=== PATIENT | female | born 1990 | race Caucasian/White ===

== ENCOUNTER 2017-02-23 22:43 | Inpatient (IN) | payer BC ==
[~2017-02-23] VITALS: Ht 167.6 cm; Wt 68.1 kg
[2017-02-23 23:02] LABS: BILIRUBIN,URINE NEGATIVE (NEG); GLUCOSE,URINE NEGATIVE (NEG); NITRITE,URINE NEGATIVE (NEG); PROTEIN,URINE NEGATIVE (NEG-TRACE)
[2017-02-23 23:08] LABS: BACTERIA,URINE 0 /HPF (0-FEW); RBC,URINE 0 /HPF (0-2); SQUAMOUS EPITHELIAL CELL,UR MOD /LPF
[2017-02-23 23:09] LABS: BARBITURATES NEG (NEG); BENZODIAZEPINES NEG (NEG); CANNABINOIDS POS (NEG); COCAINE NEG (NEG); METHADONE NEG (NEG); OPIATES NEG (NEG); PHENCYCLIDINE NEG (NEG)
[2017-02-23 23:10] LABS: BASO % 0 % (0-3); EOS % 3 % (0-3); HEMATOCRIT 44.5 % (36.0-47.0); HEMOGLOBIN 14.8 g/dL (12.0-15.5); LYMPH # 4.1 x10^3/uL (1.0-4.8); LYMPH % 33 % (24-48); MEAN CORPUSCULAR HEMOGLOBIN 31 pg (25-35); MEAN CORPUSCULAR HGB CONC 33 g/dL (31-37); MEAN CORPUSCULAR VOLUME 93 fL (79-100); MONO % 5 % (0-9); NEUT % 58 % (31-73); PLATELET COUNT 247 x10^3/uL (140-400); RED BLOOD COUNT 4.78 x10^6/uL (3.50-5.40); RED CELL DISTRIBUTION WIDTH 13.1 % (11.5-14.5); WHITE BLOOD COUNT 12.3 x10^3/uL (4.0-11.0)
[2017-02-23] MEDS ORDERED: MULTIVIT INFUSN,ADULT 4,VIT K 10 ML, FOLIC ACID 1 MG, THIAMINE 100 MG in IV NORMAL SALI... IV SCH (23:15)
[2017-02-23 23:18] LABS: NEG OBC SER NEG; POS OBC SER POS
[2017-02-23 23:20] LABS: CALCIUM 8.8 mg/dL (8.5-10.1); CREATININE 0.8 mg/dL (0.6-1.0); GFR 84.8; POTASSIUM 4.1 mmol/L (3.5-5.1)
[2017-02-23 23:23] LABS: ETHANOL < 10 mg/dL (0-10)
[2017-02-23 23:26] LABS: ALBUMIN 3.6 g/dL (3.4-5.0); ALBUMIN/GLOBULIN RATIO 0.9 (1.0-1.7); TOTAL BILIRUBIN 0.6 mg/dL (0.2-1.0); TOTAL PROTEIN 7.4 g/dL (6.4-8.2)
--- NOTE | 2017-02-23 23:29 | PHYS DOC ---
Past Medical History Past Medical History: Depression, Schizophrenia, Other Additional Past Medical Histor: polycystic ovarian disease Past Surgical History: , Tubal ligation, Other Additional Past Surgical Histo: wisdom tooth extraction Smoking: Cigarettes, 1 Pack Per Day Alcohol Use: Occasionally Drug Use: Benzodiazepine, Marijuana Adult General Chief Complaint Chief Complaint: OVERDOSE HPI HPI Patient is a pleasant 27-year-old female 003 who presents to the ER last menstrual period she is not but comes in today for an attempted suicide by intentional overdose. A benzodiazepines. She's been diagnosed with depression, schizophrenia and she has had prior suicidal attempts by overdose in the past. She denies any precipitating event but definitely felt so sad that she wanted to take herself out of this world. She no longer wants to live she denies any chest pain, abdominal pain, focal neurologic deficits, promise breathing, recent trauma or sexual abuse, she denies any homicidal ideations or threats at home. She denies any other coingestions other than the benzodiazepines. She denies any financial issues, relationship issues, or other plan or access to a gun at home. Her children now with their father Review of Systems Review of Systems Constitutional: Denies fever or chills [] Eyes: Denies change in visual acuity, redness, or eye pain [] HENT: Denies nasal congestion or sore throat [] Respiratory: Denies cough or shortness of breath [] Cardiovascular: No additional information not addressed in HPI [] GI: Denies abdominal pain, nausea, vomiting, bloody stools or diarrhea [] : Denies dysuria or hematuria [] Musculoskeletal: Denies back pain or joint pain [] Integument: Denies rash or skin lesions [] Neurologic: Denies headache, focal weakness or sensory changes [] Patient is difficult to arouse but able to answer all questions Current Medications Current Medications Current Medications Medications (Trade) Dose Ordered Sig/Nathan Start Time Stop Time Status Last Admin Dose Admin Multivitamins 10 ml/Folic Acid 1 mg/Thiamine HCl 100 mg/Sodium Chloride 1,011.2 ml @ 1,000 mls/ hr Q1H 02/23/17 23:15 02/23/17 23:22 DC 02/23/17 23:22 1,000 MLS/HR Allergies Allergies Allergies Coded Allergies Type Severity Reaction Last Updated Verified No Known Drug Allergies 08/01/14 No Physical Exam Physical Exam Constitutional: Well developed, well nourished, patient is drowsy but arousable on exam. She is presently intoxicated but does not smell of alcohol there is no obvious toxidrome present. HENT: Normocephalic, atraumatic, bilateral external ears normal, dry mucous membranes no oral exudates, nose normal. [] Eyes: PERRLA, EOMI, conjunctiva normal, no discharge. [] Neck: Normal range of motion, no tenderness, supple, no stridor. [] Cardiovascular:Heart rate regular rhythm, no murmur [] Lungs & Thorax: Bilateral breath sounds clear to auscultation [] Abdomen: Bowel sounds normal, soft, no tenderness, no masses, no pulsatile masses. [] Skin: Warm, dry, no erythema, no rash. [] Back: No tenderness, no CVA tenderness. [] Extremities: No tenderness, no cyanosis, no clubbing, ROM intact, no edema. [] Neurologic: Patient with slurred speech obviously intoxicated with lead noted 2 brought her by her mother unclear location Psychologic: Patient still actively suicidal and stated intent to she is depressed and blunted affect. Current Patient Data Vital Signs Vital Signs Date Time Temp Pulse Resp B/P (MAP) Pulse Ox O2 Delivery O2 Flow Rate FiO2 02/23/17 23:03 97.7 88 16 109/74 (86) 99 Room Air 97.7 Lab Values Laboratory Tests Test 02/23/17 22:55 02/23/17 23:00 Urine Collection Type Unknown Urine Color Yellow Urine Clarity Clear Urine pH 7.0 Urine Specific [place] 1.020 Urine Protein Negative mg/dL (NEG-TRACE) Urine Glucose (UA) Negative mg/dL (NEG) Urine Ketones (Stick) Negative mg/dL (NEG) Urine Blood Negative (NEG) Urine Nitrite Negative (NEG) Urine Bilirubin Negative (NEG) Urine Urobilinogen Dipstick 1.0 mg/dL (0.2 mg/dL) Urine Leukocyte Esterase Trace (NEG) Urine RBC 0 /HPF (0-2) Urine WBC 1-4 /HPF (0-4) Urine Squamous Epithelial Cells Mod /LPF Urine Amorphous Sediment Present /HPF Urine Bacteria 0 /HPF (0-FEW) Urine Mucus Slight /LPF Urine Opiates Screen Neg (NEG) Urine Methadone Screen Neg (NEG) Urine Barbiturates Neg (NEG) Urine Phencyclidine Screen Neg (NEG) Urine Amphetamine/Methamphetamine Neg (NEG) Urine Benzodiazepines Screen Neg (NEG) Urine Cocaine Screen Neg (NEG) Urine Cannabinoids Screen Pos (NEG) Urine Ethyl Alcohol Neg (NEG) White Blood Count 12.3 x10^3/uL (4.0-11.0) H Red Blood Count 4.78 x10^6/uL (3.50-5.40) Hemoglobin 14.8 g/dL (12.0-15.5) Hematocrit 44.5 % (36.0-47.0) Mean Corpuscular Volume 93 fL (79-100) Mean Corpuscular Hemoglobin 31 pg (25-35) Mean Corpuscular Hemoglobin Concent 33 g/dL (31-37) Red Cell Distribution Width 13.1 % (11.5-14.5) Platelet Count 247 x10^3/uL (140-400) Neutrophils (%) (Auto) 58 % (31-73) Lymphocytes (%) (Auto) 33 % (24-48) Monocytes (%) (Auto) 5 % (0-9) Eosinophils (%) (Auto) 3 % (0-3) Basophils (%) (Auto) 0 % (0-3) Neutrophils # (Auto) 7.2 x10^3uL (1.8-7.7) Lymphocytes # (Auto) 4.1 x10^3/uL (1.0-4.8) Monocytes # (Auto) 0.6 x10^3/uL (0.0-1.1) Eosinophils # (Auto) 0.4 x10^3/uL (0.0-0.7) Basophils # (Auto) 0.0 x10^3/uL (0.0-0.2) Sodium Level 144 mmol/L (136-145) Potassium Level 4.1 mmol/L (3.5-5.1) Chloride Level 108 mmol/L (98-107) H Carbon Dioxide Level 27 mmol/L (21-32) Anion Gap 9 (6-14) Blood Urea Nitrogen 10 mg/dL (7-20) Creatinine 0.8 mg/dL (0.6-1.0) Estimated GFR (Cockcroft-Gault) 84.8 BUN/Creatinine Ratio 13 (6-20) Glucose Level 88 mg/dL (70-99) Calcium Level 8.8 mg/dL (8.5-10.1) Magnesium Level 2.0 mg/dL (1.8-2.4) Total Bilirubin 0.6 mg/dL (0.2-1.0) Aspartate Amino Transferase (AST) 23 U/L (15-37) Alanine Aminotransferase (ALT) 27 U/L (14-59) Alkaline Phosphatase 79 U/L (46-116) Total Protein 7.4 g/dL (6.4-8.2) Albumin 3.6 g/dL (3.4-5.0) Albumin/Globulin Ratio 0.9 (1.0-1.7) L Thyroid Stimulating Hormone (TSH) 1.857 uIU/mL (0.358-3.74) Serum Test, Qualitative Negative (NEG) Salicylates Level 3.2 mg/dL (2.8-20.0) Salicylate Last Dose Date Unk Salicylate Last Dose Time Unk Acetaminophen Level < 2 mcg/ml (10-30) L Acetaminophen Last Dose Date Unk Acetaminophen Last Dose Time Unk Ethyl Alcohol Level < 10 mg/dL (0-10) Laboratory Tests 02/23/17 23:00 Laboratory Tests 02/23/17 23:00 EKG EKG ekg timed 20-50 date 02/23/2017 read as normal sinus rhythm heart rate of 89 to some T-wave abnormalities consistent with acute STEMI T-wave inversion V1 may be a normal variant flattened T waves in the inferior leads not anatomical [] Radiology/Procedures Radiology/Procedures [] Course & Med Decision Making Course & Med Decision Making Pertinent Labs and Imaging studies reviewed. (See chart for details) Patient's nursing notes, vital signs, laboratory work reviewed by Dr. Marquez decided to admit patient for medical clearance given duration of symptoms expected with Ativan orally. Discussed patient care with psych military police officer as well as internal medicine Dr. Adamson. who agrees with the admission at this point patient hemodynamics stable resting continent comfortably and quietly receiving a banana bag in the emergency department. She'll be given supportive care one-on -one observation continued fluid management food management and Zofran for nausea. [] Dragon Disclaimer Dragon Disclaimer This electronic medical record was generated, in whole or in part, using a voice recognition dictation system. Departure Departure Impression: Primary Impression: Suicidal ideation Additional Impression: Intentional overdose of drug in tablet form Referrals: NO PCP (PCP) Problem Qualifiers JANIA MARQUEZ MD February 23, 2017 23:29
[2017-02-23] MEDS ORDERED: ONDANSETRON PF 4 MG/2 ML VIAL. IV PRN (23:55)
[2017-02-23] MEDS ORDERED: IV NORMAL SALINE 1000ML BAG 1,000 ML IV ONE (23:55)
[2017-02-24] VITALS (27 sets, daily range): BP systolic 82–124; BP diastolic 44–74
--- NOTE | 2017-02-24 01:29 | ACF ---
Admission Forms Criteria PSYCHIATRIC DISORDERS Clinical Indications for Inpatient Care (Place 'X' for any and all applicable criteria): Ongoing inpatient care may be needed for ANY ONE of the following(1)(2)(3)(4)(6) (7)(8): [X ]I. Danger to self or others not manageable at lower level of care. [ ]II. Grave disability (eg, inability to perform self care necessary at lower level of care) [ ]III. Agitation or inappropriate behavior interfering with care for primary condition (eg, attempting to discontinue lines or drains prematurely, unable to cooperate with respiratory care) [ ]IV. Severe disability or disorder indicated by ALL of the following: [ ]a) Severe behavioral health disorder-related symptoms or condition indicated by ANY ONE of the following: [ ]i) Severe problem with cognition, memory, judgment, or impulse control [ ]ii) Severe clinical manifestations (eg, hallucinations, delusions, other acute psychotic symptoms, mami, extreme agitation or anxiety) [ ]b) Patient management at lower level of care is not feasible until acute intervention or modification is initiated. Extended stay beyond goal length of stay for the primary condition may be indicated when ANY ONE of the following is present: (1)(2)(3)(4): [ ]a) Patient is a danger to self or others and not manageable at lower level of care. [ ]b) Behavior crisis management, including physical or chemical restraints, is required and is not available at a lower level of care. [ ]c) Behavioral symptoms (e.g., agitation, somnolence, inappropriate behavior) are present, and are not manageable at a lower level of care. [ ]d) Patient cannot understand follow-up treatment and crisis plan. [ ]e) Provider and supports are not sufficiently available at lower level of care. [ ]f) Patient cannot participate (e.g., verify absence of plan for harm) and is in needed of monitoring. The original [employer] content created by [employer] has been revised. The portions of the content which have been revised are identified through the use of italic text or in bold, and [facility] has neither reviewed nor approved the modified material. All other unmodified content is copyright [facility] [employer]. Please see references footnoted in the original [facility] edition 2016 Admission Criteria Met?: Yes BISMARK MCCLOUD February 24, 2017 01:29
[2017-02-24] MEDS ORDERED: LAMO200T PO (02:06)
[2017-02-24] MEDS ORDERED: LORA1TAB PO (02:06)
[2017-02-24] MEDS ORDERED: BUPR200T PO ×2 (02:06)
[2017-02-24] MEDS ORDERED: METO25TA4 PO (02:06)
[2017-02-24] MEDS ORDERED: ARIP5TAB6 PO (02:06)
--- NOTE | 2017-02-24 06:21 | EKG ---
[facility] [address] [place] [address] Test Date: 2017-02-23 Test Time: 22:50:00 Pat Name: MAXIMO ZAZUETA Department: Room: Gender: F Husbandry Technician: ROBIN EMT : 1990 Requested By: JANIA MARQUEZ Order Number: [id number] Reading MD: Measurements Intervals [place] Rate: 89 P: 50 RI: 182 QRS: 44 QRSD: 84 T: 31 QT: 362 QTc: 441 Interpretive Statements SINUS RHYTHM QRS(T) CONTOUR ABNORMALITY CONSIDER ANTEROSEPTAL MYOCARDIAL DAMAGE RI6.01 Unconfirmed report No previous ECG available for comparison
--- NOTE | 2017-02-24 10:04 | PDOC1 ---
History and Physical Family History Family History: Hypertension Social History Smoke: <1 pack per day ALCOHOL: none Drugs: None Current Problem List Problem List Problems Medical Problems: (1) Intentional overdose of drug in tablet form Status: Acute (2) Suicidal ideation Status: Acute Current Medications Current Medications Current Medications Medications (Trade) Dose Ordered Sig/Nathan Start Time Stop Time Status Last Admin Dose Admin Multivitamins 10 ml/Folic Acid 1 mg/Thiamine HCl 100 mg/Sodium Chloride 1,011.2 ml @ 1,000 mls/ hr Q1H 02/23/17 23:15 02/23/17 23:22 DC 02/23/17 23:22 1,000 MLS/HR Ondansetron HCl (Zofran) 4 mg PRN Q8HRS PRN 02/23/17 23:55 02/24/17 23:54 Sodium Chloride 1,000 ml @ 75 mls/hr 1X ONCE 02/23/17 23:55 02/24/17 13:14 02/24/17 02:00 75 MLS/HR Allergies Allergies Allergies Coded Allergies Type Severity Reaction Last Updated Verified No Known Drug Allergies 08/01/14 No ROS Review of System CONSTITUTIONAL: No fever or chills EYES: No recent changes SKIN: No rash or itching CARDIOVASCULAR: No chest pain, syncope, palpitations, or edema RESPIRATORY: No SOB or cough GASTROINTESTINAL: No nausea, vomiting or abdominal pain NEUROLOGICAL: No headaches or weakness ENDOCRINE: No cold or heat intolerance GENITOURINARY: No urgency or frequency of urination MUSCULOSKELETAL: No back pain or joint pain LYMPHATICS: No enlarged lymph nodes PSYCHIATRIC: suicidal ideations Physical Exam Physical Exam GEN.: No apparent distress. Alert and oriented to self, not to place HEENT: Head is normocephalic, atraumatic NECK: Supple. no JVD LUNGS: Clear to auscultation. HEART: RRR, S1, S2 present. Peripheral pulses intact ABDOMEN: Soft, nontender. Positive bowel sounds. EXTREMITIES: Without any cyanosis. NEUROLOGIC: Normal speech, normal tone PSYCHIATRIC: Suicidal ideations SKIN: No ulcerations Vitals Vitals Vital Signs Date Time Temp Pulse Resp B/P (MAP) Pulse Ox O2 Delivery O2 Flow Rate FiO2 02/24/17 09:30 81 17 92/62 (72) 95 Room Air 02/24/17 04:00 97.7 97.7 02/24/17 00:00 96.0 Labs Labs Laboratory Tests Test 02/23/17 22:55 02/23/17 23:00 Urine Collection Type Unknown Urine Color Yellow Urine Clarity Clear Urine pH 7.0 Urine Specific [place] 1.020 Urine Protein Negative mg/dL (NEG-TRACE) Urine Glucose (UA) Negative mg/dL (NEG) Urine Ketones (Stick) Negative mg/dL (NEG) Urine Blood Negative (NEG) Urine Nitrite Negative (NEG) Urine Bilirubin Negative (NEG) Urine Urobilinogen Dipstick 1.0 mg/dL (0.2 mg/dL) Urine Leukocyte Esterase Trace (NEG) Urine RBC 0 /HPF (0-2) Urine WBC 1-4 /HPF (0-4) Urine Squamous Epithelial Cells Mod /LPF Urine Amorphous Sediment Present /HPF Urine Bacteria 0 /HPF (0-FEW) Urine Mucus Slight /LPF Urine Opiates Screen Neg (NEG) Urine Methadone Screen Neg (NEG) Urine Barbiturates Neg (NEG) Urine Phencyclidine Screen Neg (NEG) Urine Amphetamine/Methamphetamine Neg (NEG) Urine Benzodiazepines Screen Neg (NEG) Urine Cocaine Screen Neg (NEG) Urine Cannabinoids Screen Pos (NEG) Urine Ethyl Alcohol Neg (NEG) White Blood Count 12.3 x10^3/uL (4.0-11.0) Red Blood Count 4.78 x10^6/uL (3.50-5.40) Hemoglobin 14.8 g/dL (12.0-15.5) Hematocrit 44.5 % (36.0-47.0) Mean Corpuscular Volume 93 fL (79-100) Mean Corpuscular Hemoglobin 31 pg (25-35) Mean Corpuscular Hemoglobin Concent 33 g/dL (31-37) Red Cell Distribution Width 13.1 % (11.5-14.5) Platelet Count 247 x10^3/uL (140-400) Neutrophils (%) (Auto) 58 % (31-73) Lymphocytes (%) (Auto) 33 % (24-48) Monocytes (%) (Auto) 5 % (0-9) Eosinophils (%) (Auto) 3 % (0-3) Basophils (%) (Auto) 0 % (0-3) Neutrophils # (Auto) 7.2 x10^3uL (1.8-7.7) Lymphocytes # (Auto) 4.1 x10^3/uL (1.0-4.8) Monocytes # (Auto) 0.6 x10^3/uL (0.0-1.1) Eosinophils # (Auto) 0.4 x10^3/uL (0.0-0.7) Basophils # (Auto) 0.0 x10^3/uL (0.0-0.2) Sodium Level 144 mmol/L (136-145) Potassium Level 4.1 mmol/L (3.5-5.1) Chloride Level 108 mmol/L (98-107) Carbon Dioxide Level 27 mmol/L (21-32) Anion Gap 9 (6-14) Blood Urea Nitrogen 10 mg/dL (7-20) Creatinine 0.8 mg/dL (0.6-1.0) Estimated GFR (Cockcroft-Gault) 84.8 BUN/Creatinine Ratio 13 (6-20) Glucose Level 88 mg/dL (70-99) Calcium Level 8.8 mg/dL (8.5-10.1) Magnesium Level 2.0 mg/dL (1.8-2.4) Total Bilirubin 0.6 mg/dL (0.2-1.0) Aspartate Amino Transf (AST/SGOT) 23 U/L (15-37) Alanine Aminotransferase (ALT/SGPT) 27 U/L (14-59) Alkaline Phosphatase 79 U/L (46-116) Total Protein 7.4 g/dL (6.4-8.2) Albumin 3.6 g/dL (3.4-5.0) Albumin/Globulin Ratio 0.9 (1.0-1.7) Thyroid Stimulating Hormone (TSH) 1.857 uIU/mL (0.358-3.74) Serum Test, Qualitative Negative (NEG) Salicylates Level 3.2 mg/dL (2.8-20.0) Salicylate Last Dose Date Unk Salicylate Last Dose Time Unk Acetaminophen Level < 2 mcg/ml (10-30) Acetaminophen Last Dose Date Unk Acetaminophen Last Dose Time Unk Ethyl Alcohol Level < 10 mg/dL (0-10) Laboratory Tests Test 02/23/17 22:55 02/23/17 23:00 Urine Collection Type Unknown Urine Color Yellow Urine Clarity Clear Urine pH 7.0 Urine Specific [place] 1.020 Urine Protein Negative mg/dL (NEG-TRACE) Urine Glucose (UA) Negative mg/dL (NEG) Urine Ketones (Stick) Negative mg/dL (NEG) Urine Blood Negative (NEG) Urine Nitrite Negative (NEG) Urine Bilirubin Negative (NEG) Urine Urobilinogen Dipstick 1.0 mg/dL (0.2 mg/dL) Urine Leukocyte Esterase Trace (NEG) Urine RBC 0 /HPF (0-2) Urine WBC 1-4 /HPF (0-4) Urine Squamous Epithelial Cells Mod /LPF Urine Amorphous Sediment Present /HPF Urine Bacteria 0 /HPF (0-FEW) Urine Mucus Slight /LPF Urine Opiates Screen Neg (NEG) Urine Methadone Screen Neg (NEG) Urine Barbiturates Neg (NEG) Urine Phencyclidine Screen Neg (NEG) Urine Amphetamine/Methamphetamine Neg (NEG) Urine Benzodiazepines Screen Neg (NEG) Urine Cocaine Screen Neg (NEG) Urine Cannabinoids Screen Pos (NEG) Urine Ethyl Alcohol Neg (NEG) White Blood Count 12.3 x10^3/uL (4.0-11.0) Red Blood Count 4.78 x10^6/uL (3.50-5.40) Hemoglobin 14.8 g/dL (12.0-15.5) Hematocrit 44.5 % (36.0-47.0) Mean Corpuscular Volume 93 fL (79-100) Mean Corpuscular Hemoglobin 31 pg (25-35) Mean Corpuscular Hemoglobin Concent 33 g/dL (31-37) Red Cell Distribution Width 13.1 % (11.5-14.5) Platelet Count 247 x10^3/uL (140-400) Neutrophils (%) (Auto) 58 % (31-73) Lymphocytes (%) (Auto) 33 % (24-48) Monocytes (%) (Auto) 5 % (0-9) Eosinophils (%) (Auto) 3 % (0-3) Basophils (%) (Auto) 0 % (0-3) Neutrophils # (Auto) 7.2 x10^3uL (1.8-7.7) Lymphocytes # (Auto) 4.1 x10^3/uL (1.0-4.8) Monocytes # (Auto) 0.6 x10^3/uL (0.0-1.1) Eosinophils # (Auto) 0.4 x10^3/uL (0.0-0.7) Basophils # (Auto) 0.0 x10^3/uL (0.0-0.2) Sodium Level 144 mmol/L (136-145) Potassium Level 4.1 mmol/L (3.5-5.1) Chloride Level 108 mmol/L (98-107) Carbon Dioxide Level 27 mmol/L (21-32) Anion Gap 9 (6-14) Blood Urea Nitrogen 10 mg/dL (7-20) Creatinine 0.8 mg/dL (0.6-1.0) Estimated GFR (Cockcroft-Gault) 84.8 BUN/Creatinine Ratio 13 (6-20) Glucose Level 88 mg/dL (70-99) Calcium Level 8.8 mg/dL (8.5-10.1) Magnesium Level 2.0 mg/dL (1.8-2.4) Total Bilirubin 0.6 mg/dL (0.2-1.0) Aspartate Amino Transf (AST/SGOT) 23 U/L (15-37) Alanine Aminotransferase (ALT/SGPT) 27 U/L (14-59) Alkaline Phosphatase 79 U/L (46-116) Total Protein 7.4 g/dL (6.4-8.2) Albumin 3.6 g/dL (3.4-5.0) Albumin/Globulin Ratio 0.9 (1.0-1.7) Thyroid Stimulating Hormone (TSH) 1.857 uIU/mL (0.358-3.74) Serum Test, Qualitative Negative (NEG) Salicylates Level 3.2 mg/dL (2.8-20.0) Salicylate Last Dose Date Unk Salicylate Last Dose Time Unk Acetaminophen Level < 2 mcg/ml (10-30) Acetaminophen Last Dose Date Unk Acetaminophen Last Dose Time Unk Ethyl Alcohol Level < 10 mg/dL (0-10) VTE Prophylaxis Ordered VTE Prophylaxis Devices: No VTE Pharmacological Prophylaxi: No LAUREN VARGAS MD February 24, 2017 10:03
[2017-02-24] MEDS ORDERED: IV NORMAL SALINE 1000ML BAG 1,000 ML IV ONE (10:15)
[2017-02-24] MEDS: IV NORMAL SALINE 1000ML BAG 1,000 ML IV SCH (14:30)
[2017-02-24] MEDS: NICOTINE 21MG PATCH. TD PRN (15:19)
[2017-02-24] MEDS ORDERED: MULTIVIT INFUSN,ADULT 4,VIT K 10 ML, FOLIC ACID 1 MG, THIAMINE 100 MG in IV NORMAL SALI... IV ONE (16:00)
--- NOTE | 2017-02-24 19:18 | HP ---
ADMIT DATE: 02/24/2017 CHIEF COMPLAINT: Overdose, suicidal ideations. HISTORY OF PRESENT ILLNESS: A 27-year-old female patient with a prior history of bipolar schizophrenia, brought to the hospital for an intentional overdose on benzodiazepines. She was diagnosed with depression, schizophrenia, bipolar disorder, and several suicidal attempts with overdose in the past. She reportedly took several pills, more than 15 of benzodiazepines and the patient was brought to the hospital for treatment. Most of the history is obtained from the chart and the patient's sister at bedside. At the time of my examination this morning, the patient is awake, alert, and able to answer questions, but she still has active suicidal ideations. She does not move on to live, she wanted to take herself out of this world. She denies any issues. She did not recall the events exactly what happened yesterday. She denies any homicidal ideations. PAST MEDICAL HISTORY: Depression, bipolar disorder, schizophrenia, polycystic ovarian disease, , and tubal ligation. PAST SURGICAL HISTORY: Recent tooth extraction. PERSONAL HISTORY: Smoking less than 1 pack a day. Occasionally takes alcohol. Occasionally takes marijuana. FAMILY HISTORY: Hypertension. ALLERGIES: NKDA. REVIEW OF SYSTEMS: Please see my electronic H and P. PHYSICAL EXAMINATION: Please see my electronic H and P. LABORATORY FINDINGS: Chemistry within normal limits. test is negative. CBC within normal limits. Toxicology: Ethanol/alcohol level not done. Cannabinoids positive. Rest of the normal toxicology is negative. Urinalysis: Nitrites negative, leukocyte esterase was trace. ____ studies not done. ASSESSMENT AND PLAN: 1. Active suicidal ideations. 2. Overdose with benzodiazepine present on admission. 3. History of schizophrenia. 4. Bipolar disorder. 5. Nicotine abuse. PLAN: 1. The patient reportedly took several pills of Ativan and her initial EKG did not show any acute ST or T-wave changes. She has been placed in Critical Care Unit and is currently getting IV hydration with IV Zofran for symptomatic nausea. 2. Also, I am going to continue her on multivitamin replacements. 3. One-to-one suicidal precautions. 4. Psychiatric assessment team has been consulted. The patient will need in-hospital psychiatric admission. 5. Plan discussed with the patient's sister at bedside. 6. Nicotine patch. 7. Urine culture and sensitivity is pending. 8. Anticipated discharge tomorrow if the patient is able to talk____ to Psychiatric Care Assessment Team. PROGNOSIS: Guarded. LAUREN VARGAS MD DR: FRAN/linus JOB#: [id number] / [id number]
[2017-02-25] MEDS: IV NORMAL SALINE 1000ML BAG 1,000 ML IV SCH ×2 (00:51→10:30)
[2017-02-25 03:01] VITALS: BP 103/73
[2017-02-25 07:03] VITALS: BP 99/70
[2017-02-25 10:06] VITALS: BP 126/66
--- NOTE | 2017-02-25 13:34 | PDOC3 ---
Discharge Summary Visit Information Date of Admission: February 23, 2017 Date of Discharge: February 25, 2017 Admitting Diagnosis Comment: 1. Active suicidal ideations. Ativan OD (not the first time) 2. Overdose with benzodiazepine present on admission. 3. History of schizophrenia. 4. Bipolar disorder. 5. Nicotine abuse.\ 6. Otherwise, medically stable Final Diagnosis Problems Medical Problems: (1) Intentional overdose of drug in tablet form Status: Acute (2) Suicidal ideation Status: Acute Brief Hospital Course Allergies Allergies Coded Allergies Type Severity Reaction Last Updated Verified No Known Drug Allergies 08/01/14 No Vital Signs Vital Signs Date Time Temp Pulse Resp B/P (MAP) Pulse Ox O2 Delivery O2 Flow Rate FiO2 02/25/17 10:06 97.9 93 18 126/66 (86) 99 Room Air 97.9 Lab Results Laboratory Tests Test 02/23/17 22:55 02/23/17 23:00 02/24/17 08:15 Urine Collection Type Unknown Urine Color Yellow Urine Clarity Clear Urine pH 7.0 Urine Specific [place] 1.020 Urine Protein Negative mg/dL (NEG-TRACE) Urine Glucose (UA) Negative mg/dL (NEG) Urine Ketones (Stick) Negative mg/dL (NEG) Urine Blood Negative (NEG) Urine Nitrite Negative (NEG) Urine Bilirubin Negative (NEG) Urine Urobilinogen Dipstick 1.0 mg/dL (0.2 mg/dL) Urine Leukocyte Esterase Trace (NEG) Urine RBC 0 /HPF (0-2) Urine WBC 1-4 /HPF (0-4) Urine Squamous Epithelial Cells Mod /LPF Urine Amorphous Sediment Present /HPF Urine Bacteria 0 /HPF (0-FEW) Urine Mucus Slight /LPF Urine Opiates Screen Neg (NEG) Urine Methadone Screen Neg (NEG) Urine Barbiturates Neg (NEG) Urine Phencyclidine Screen Neg (NEG) Urine Amphetamine/Methamphetamine Neg (NEG) Urine Benzodiazepines Screen Neg (NEG) Urine Cocaine Screen Neg (NEG) Urine Cannabinoids Screen Pos (NEG) Urine Ethyl Alcohol Neg (NEG) White Blood Count 12.3 x10^3/uL (4.0-11.0) Red Blood Count 4.78 x10^6/uL (3.50-5.40) Hemoglobin 14.8 g/dL (12.0-15.5) Hematocrit 44.5 % (36.0-47.0) Mean Corpuscular Volume 93 fL (79-100) Mean Corpuscular Hemoglobin 31 pg (25-35) Mean Corpuscular Hemoglobin Concent 33 g/dL (31-37) Red Cell Distribution Width 13.1 % (11.5-14.5) Platelet Count 247 x10^3/uL (140-400) Neutrophils (%) (Auto) 58 % (31-73) Lymphocytes (%) (Auto) 33 % (24-48) Monocytes (%) (Auto) 5 % (0-9) Eosinophils (%) (Auto) 3 % (0-3) Basophils (%) (Auto) 0 % (0-3) Neutrophils # (Auto) 7.2 x10^3uL (1.8-7.7) Lymphocytes # (Auto) 4.1 x10^3/uL (1.0-4.8) Monocytes # (Auto) 0.6 x10^3/uL (0.0-1.1) Eosinophils # (Auto) 0.4 x10^3/uL (0.0-0.7) Basophils # (Auto) 0.0 x10^3/uL (0.0-0.2) Sodium Level 144 mmol/L (136-145) Potassium Level 4.1 mmol/L (3.5-5.1) Chloride Level 108 mmol/L (98-107) Carbon Dioxide Level 27 mmol/L (21-32) Anion Gap 9 (6-14) Blood Urea Nitrogen 10 mg/dL (7-20) Creatinine 0.8 mg/dL (0.6-1.0) Estimated GFR (Cockcroft-Gault) 84.8 BUN/Creatinine Ratio 13 (6-20) Glucose Level 88 mg/dL (70-99) Calcium Level 8.8 mg/dL (8.5-10.1) Magnesium Level 2.0 mg/dL (1.8-2.4) Total Bilirubin 0.6 mg/dL (0.2-1.0) Aspartate Amino Transf (AST/SGOT) 23 U/L (15-37) Alanine Aminotransferase (ALT/SGPT) 27 U/L (14-59) Alkaline Phosphatase 79 U/L (46-116) Total Protein 7.4 g/dL (6.4-8.2) Albumin 3.6 g/dL (3.4-5.0) Albumin/Globulin Ratio 0.9 (1.0-1.7) Thyroid Stimulating Hormone (TSH) 1.857 uIU/mL (0.358-3.74) Serum Test, Qualitative Negative (NEG) Salicylates Level 3.2 mg/dL (2.8-20.0) Salicylate Last Dose Date Unk Salicylate Last Dose Time Unk Acetaminophen Level < 2 mcg/ml (10-30) Acetaminophen Last Dose Date Unk Acetaminophen Last Dose Time Unk Ethyl Alcohol Level < 10 mg/dL (0-10) Nasal Screen MRSA (PCR) Negative (Negative) Brief Hospital Course Ms. Brian is a 27 old female admitted for another of her SI, has had xanax OD in the past, this time she did the same. Luckily medically stable, labs ok, UDS actually dont show BZs in the system. PAt team assessed, meets inpt sych criteria as expected. Sitter at bedside Adonis GIBSON done Pt seen and examined Cleared medically to dc to psych facility Discharge Information Condition at Discharge: Improved, Stable Disposition/Orders: Other ([facility]) Scheduled Aripiprazole (Abilify), 5 MG PO DAILY, (Reported) Bupropion Hcl (Bupropion Hcl Sr), 200 MG PO DAILY, (Reported) Lamotrigine (Lamotrigine), 1 TAB PO DAILY, (Reported) Metoprolol Tartrate (Metoprolol Tartrate), 0.5 TAB PO BID, (Reported) Scheduled PRN Lorazepam (Lorazepam), 1 TAB PO BID PRN for ANXIETY / AGITATION, (Reported) Miscellaneous Medications Bupropion Hcl (Bupropion Hcl Sr), 200 MG PO, (Reported) HARPREET RICO MD February 25, 2017 13:34
[2017-02-25] MEDS ORDERED: buPROPion SR 100 MG TABLET.SA. PO SCH (14:00)
[2017-02-25] MEDS ORDERED: ARIPiprazole 5 MG TABLET PO SCH (14:00)
[2017-02-25] MEDS ORDERED: METOPROLOL TART IMMED RELEASE 25 MG TABLET. PO SCH (14:00)
[2017-02-25] MEDS ORDERED: lamoTRIgine 100 MG TABLET. PO SCH (14:00)
[2017-02-25] MEDS: NICOTINE 21MG PATCH. TD PRN (14:06)
[2017-02-25 14:33] VITALS: BP 114/64
== END 2017-02-25 16:23 | DRG 918 ==
LOC: ER 22:43 → 1 WEST ICU 23:55 → 6 SOUTH 02-24 13:48
PROVIDERS: ADMIT Internal Medicine; ATTEND Internal Medicine
DX: T42.4X2A Poisoning by benzodiazepines, intentional self-harm, initial encounter (principal); F17.210 Nicotine dependence, cigarettes, uncomplicated; F20.9 Schizophrenia, unspecified; Z82.49 Family history of ischemic heart disease and other diseases of the circulatory system; Z91.5 Personal history of self-harm; Z98.51 Tubal ligation status
CPT/HCPCS: 36415; 51701; 80053; 81001; 83735; 84443; 84703; 85027; 87086; 87641; 93005; 96365; G0480; G0481; G6038; J7030; 80196; 99285-25

== ENCOUNTER 2017-12-26 22:11 | Emergency (ER) | payer BC ==
[2017-12-26 22:44] LABS: BILIRUBIN,URINE NEGATIVE (NEG); CLARITY,URINE CLEAR; COLOR,URINE YELLOW; GLUCOSE,URINE NEGATIVE (NEG); NITRITE,URINE NEGATIVE (NEG); PH,URINE 6.5; PROTEIN,URINE NEGATIVE (NEG-TRACE); UROBILINOGEN,URINE 0.2 mg/dL (0.2 mg/dL)
[2017-12-26 22:49] LABS: NEG OBC UR NEG; POS OBC UR POS; U PREG PATIENT NEGATIVE (NEG)
[2017-12-26 22:50] LABS: BACTERIA,URINE MANY /HPF (0-FEW); SQUAMOUS EPITHELIAL CELL,UR MANY /LPF
[2017-12-26] MEDS ORDERED: KETOROLAC 15 MG/ML VIAL. (23:05)
[2017-12-26] MEDS: KETOROLAC 60 MG/2 ML INJ. IM ×2 (23:22→23:26)
== END 2017-12-26 23:33 | disposition home or self-care (01) ==
LOC: ER 22:11
DX: R10.2 Pelvic and perineal pain (principal); R19.7 Diarrhea, unspecified; R11.0 Nausea; F32.9 Major depressive disorder, single episode, unspecified; F20.9 Schizophrenia, unspecified; I47.1 Supraventricular tachycardia; E28.2 Polycystic ovarian syndrome; F17.210 Nicotine dependence, cigarettes, uncomplicated; F12.10 Cannabis abuse, uncomplicated; F13.10 Sedative, hypnotic or anxiolytic abuse, uncomplicated; Z87.440 Personal history of urinary (tract) infections
CPT/HCPCS: 81001; 81025; 87086; 99284; J1885

== ENCOUNTER 2017-12-29 20:49 | Emergency (ER) | payer BC ==
[2017-12-29 21:11] LABS: URINE HCG POC HCG NEGATIVE (Negative)
[2017-12-29 21:22] LABS: BILIRUBIN,URINE NEGATIVE (NEG); CLARITY,URINE CLEAR; COLOR,URINE YELLOW; GLUCOSE,URINE NEGATIVE (NEG); NITRITE,URINE NEGATIVE (NEG); PROTEIN,URINE NEGATIVE (NEG-TRACE)
[2017-12-29] MEDS: KETOROLAC 60 MG/2 ML INJ. IM (21:31)
[2017-12-29 21:38] LABS: BACTERIA,URINE MODERATE /HPF (0-FEW); SQUAMOUS EPITHELIAL CELL,UR MANY /LPF; WBC,URINE 20-40 /HPF (0-4)
[2017-12-29] MEDS: PHENAZOPYRIDINE 200 MG TABLET. PO (22:58)
[2017-12-29] MEDS: CEPHALEXIN 250 MG CAPSULE. PO (22:59)
[2018-01-01 14:23] LABS: CHLAMYDIA PROBE Negative (Negative); GC PROBE Negative (Negative)
== END 2017-12-29 23:20 | disposition home or self-care (01) ==
LOC: ER 20:49
DX: N39.0 Urinary tract infection, site not specified (principal); F32.9 Major depressive disorder, single episode, unspecified; F20.9 Schizophrenia, unspecified; E28.2 Polycystic ovarian syndrome; I47.1 Supraventricular tachycardia; F12.10 Cannabis abuse, uncomplicated; F14.10 Cocaine abuse, uncomplicated; F13.10 Sedative, hypnotic or anxiolytic abuse, uncomplicated; K08.409 Partial loss of teeth, unspecified cause, unspecified class; Z98.51 Tubal ligation status; Z87.440 Personal history of urinary (tract) infections
CPT/HCPCS: 74176; 81001; 81025; 87086; 87491; 87591; 96372; 99285-25; J1885; Q0111

== ENCOUNTER 2019-04-15 22:33 | Emergency (ER) | payer BC ==
[~2019-04-15] VITALS: Ht 160 cm; Wt 63.5 kg
[~2019-04-15 22:33] MED LIST: ARIP5TAB13 PO; BUPR200T PO; CEPH-264 PO; DOXY100C2 PO; LAMO200T2 PO; LORA1TAB PO; METO25TA4 PO; NAPR-683 PO; PHEN-318 PO
[2019-04-15 22:49] LABS: BILIRUBIN,URINE NEGATIVE (NEG); CLARITY,URINE CLEAR; COLOR,URINE YELLOW; NITRITE,URINE POSITIVE (NEG); PH,URINE 5.5; PROTEIN,URINE NEGATIVE (NEG-TRACE)
[2019-04-15 22:55] LABS: SQUAMOUS EPITHELIAL CELL,UR FEW /LPF
[2019-04-15 22:56] LABS: BACTERIA,URINE MANY /HPF (0-FEW); WBC,URINE 20-40 /HPF (0-4)
[2019-04-15 22:57] VITALS: BP 106/59
[2019-04-15] MEDS ORDERED: PHENAZOPYRIDINE 200 MG TABLET. PO ONE (23:15)
[2019-04-15] MEDS ORDERED: PHEN100T82 PO (23:19)
[2019-04-15] MEDS ORDERED: CEPH500C PO (23:19)
--- NOTE | 2019-04-15 23:19 | PHYS DOC ---
Past Medical History Past Medical History: Anxiety, Bipolar, Depression Additional Past Medical Histor: polycystic ovarian disease, SVT, Herpes Past Surgical History: , Tubal ligation Additional Past Surgical Histo: wisdom tooth extraction Alcohol Use: Rarely Drug Use: None Adult General Chief Complaint Chief Complaint: PAIN ON URINATION HPI HPI Patient is a 29 year old female with history of anxiety, bipolar, depression, who presents to the ED today complaining of a sharp intermittent right flank pain with pressure she states that began 2 days ago. Patient denies any nausea or vomiting. She is also complaining of subjective fevers. Review of Systems Review of Systems Constitutional: Reports subjective fevers Eyes: Denies change in visual acuity, redness, or eye pain [] HENT: Denies nasal congestion or sore throat [] Respiratory: Denies cough or shortness of breath [] Cardiovascular: No additional information not addressed in HPI [] GI: Denies abdominal pain, nausea, vomiting, bloody stools or diarrhea [] :Reports right flank pain and pressure when voiding. Denies dysuria or hematuria [] Musculoskeletal: Denies back pain or joint pain [] Integument: Denies rash or skin lesions [] Neurologic: Denies headache, focal weakness or sensory changes [] All other systems were reviewed and found to be within normal limits, except as documented in this note. Current Medications Current Medications Current Medications Medications (Trade) Dose Ordered Sig/Nathan Start Time Stop Time Status Last Admin Dose Admin Cephalexin HCl (Keflex) 500 mg 1X ONCE 04/15/19 23:30 04/15/19 23:31 Ibuprofen (Motrin) 600 mg 1X ONCE 04/15/19 23:30 04/15/19 23:31 Phenazopyridine HCl (Pyridium) 200 mg 1X ONCE 04/15/19 23:15 04/15/19 23:16 DC Allergies Allergies Allergies Coded Allergies Type Severity Reaction Last Updated Verified No Known Drug Allergies 08/01/14 No Physical Exam Physical Exam Constitutional: Well developed, well nourished, no acute distress, non-toxic appearance. [] HENT: Normocephalic, atraumatic, bilateral external ears normal, oropharynx moist, no oral exudates, nose normal. [] Eyes: PERRLA, EOMI, conjunctiva normal, no discharge. [] Neck: Normal range of motion, no tenderness, supple, no stridor. [] Cardiovascular:Heart rate regular rhythm, no murmur [] Lungs & Thorax: Bilateral breath sounds clear to auscultation [] Abdomen: Bowel sounds normal, soft, no tenderness, no masses, no pulsatile masses. [] Skin: Warm, dry, no erythema, no rash. [] Back: No tenderness, no CVA tenderness. [] Extremities: No tenderness, no cyanosis, no clubbing, ROM intact, no edema. [] Neurologic: Alert and oriented X 3, normal motor function, normal sensory function, no focal deficits noted. [] Psychologic: Affect normal, judgement normal, mood normal. [] Current Patient Data Vital Signs Vital Signs Date Time Temp Pulse Resp B/P (MAP) Pulse Ox O2 Delivery O2 Flow Rate FiO2 04/15/19 22:57 98.6 110 16 106/59 (75) 99 Room Air 98.6 Lab Values Laboratory Tests Test 04/15/19 22:40 Urine Collection Type Unknown Urine Color Yellow Urine Clarity Clear Urine pH 5.5 Urine Specific [place] 1.025 Urine Protein Negative mg/dL (NEG-TRACE) Urine Glucose (UA) Negative mg/dL (NEG) Urine Ketones (Stick) Negative mg/dL (NEG) Urine Blood Moderate (NEG) Urine Nitrite Positive (NEG) Urine Bilirubin Negative (NEG) Urine Urobilinogen Dipstick 1.0 mg/dL (0.2 mg/dL) Urine Leukocyte Esterase Moderate (NEG) Urine RBC 6-10 /HPF (0-2) Urine WBC 20-40 /HPF (0-4) Urine Squamous Epithelial Cells Few /LPF Urine Bacteria Many /HPF (0-FEW) Urine Mucus Slight /LPF EKG EKG [] Radiology/Procedures Radiology/Procedures [] Course & Med Decision Making Course & Med Decision Making Pertinent Labs and Imaging studies reviewed. (See chart for details) This is a 29-year-old female patient presenting to the ED today with right flank pain, pressure when voiding and subjective fevers that began yesterday. Patient is afebrile in the ED temperature 98.6. Urine analysis is noted for moderate amount of leukocytes, nitrites, Wbc's. Patient was started on antibiotics in the ED, discharged on cephalexin. She states she must return to work tomorrow and would like a note to return to work. Note provided. Instructed to take Tylenol/Motrin for pain or fever and push fluids. Dragon Disclaimer Dragon Disclaimer This electronic medical record was generated, in whole or in part, using a voice recognition dictation system. Departure Departure Impression: Primary Impression: UTI (lower urinary tract infection) Disposition: 01 HOME, SELF-CARE Condition: STABLE Referrals: UNKNOWN PCP NAME (PCP) Follow-up in one week MAXIMILIANO PARRA MD Patient Instructions: Urinary Tract Infection Additional Instructions: You have urinary tract infection, ensure you complete your antibiotics, please push fluids. Take Tylenol/Motrin for pain or fever. Follow-up with your doctor in the next 7 days, come back to the ED at any point symptoms worsen. Scripts Phenazopyridine Hcl (PYRIDIUM) 100 Mg Tablet 100 MG PO TID, #9 TAB Prov: JEFERSON PICKARD APRN 04/15/19 Cephalexin (CEPHALEXIN) 500 Mg Capsule 1 CAP PO BID, #14 CAP Prov: JEFERSON PICKARD APRN 04/15/19 JEFERSON PICKARD APRN Apr 15, 2019 23:19
[2019-04-15] MEDS ORDERED: CEPHALEXIN 250 MG CAPSULE. PO ONE (23:30)
[2019-04-15] MEDS ORDERED: IBUPROFEN 200 MG TABLET. PO ONE (23:30)
== END 2019-04-15 23:26 | disposition home or self-care (01) ==
LOC: ER 22:33
DX: N39.0 Urinary tract infection, site not specified (principal); R50.9 Fever, unspecified; R10.9 Unspecified abdominal pain; F41.9 Anxiety disorder, unspecified; F31.9 Bipolar disorder, unspecified; Z98.890 Other specified postprocedural states; Z98.51 Tubal ligation status
CPT/HCPCS: 81001; 87086; 99284

== ENCOUNTER 2019-06-28 08:43 | Emergency (ER) | payer BC ==
[~2019-06-28] VITALS: Ht 160 cm; Wt 61.2 kg
[~2019-06-28 08:43] MED LIST changes: +CEPH500C PO; +PHEN100T82 PO
[2019-06-28 08:58] VITALS: BP 115/63
--- NOTE | 2019-06-28 09:16 | PHYS DOC ---
Past Medical History Past Medical History: Anxiety, Bipolar, Depression Additional Past Medical Histor: polycystic ovarian disease, SVT, Herpes Past Surgical History: , Tubal ligation Additional Past Surgical Histo: wisdom tooth extraction Alcohol Use: Rarely Drug Use: None Adult General Chief Complaint Chief Complaint: SKIN RASH/ABSCESS HPI HPI 29-year-old female presents to the emergency Department with complaints of rash. She states initially started on her arms associatively spread she has on her back, her chest, her abdomen. These are not itchy on exam, they're red and irritated with some scaly maculopapular. She denies fever, nausea, vomiting, chest pain, shortness of breath. Nothing makes worse or better on exam All other ROS negative unless documented in HPI Review of Systems Review of Systems See Above Allergies Allergies Allergies Coded Allergies Type Severity Reaction Last Updated Verified No Known Drug Allergies 08/01/14 No Physical Exam Physical Exam See Above Constitutional: Well developed, well nourished, no acute distress, non-toxic appearance. [] HENT: Normocephalic, atraumatic, bilateral external ears normal, oropharynx moist, no oral exudates, nose normal. [] Eyes: PERRLA, EOMI, conjunctiva normal, no discharge. [] Cardiovascular:Heart rate regular rhythm, no murmur [] Lungs & Thorax: Bilateral breath sounds clear to auscultation [] Abdomen: Bowel sounds normal, soft, no tenderness, no masses, no pulsatile masses. [] Skin: Warm, dry, evidence of maculopapular rash, some areas are scaly, non- itchy[] Extremities: No tenderness, no edema. [] Neurologic: Alert and oriented X 3, no focal deficits noted. [] Psychologic: Affect normal, judgement normal, mood normal. [] Current Patient Data Vital Signs Vital Signs Date Time Temp Pulse Resp B/P (MAP) Pulse Ox O2 Delivery O2 Flow Rate FiO2 06/28/19 08:58 98.4 74 16 115/63 (80) 95 Room Air 98.4 EKG EKG [] Radiology/Procedures Radiology/Procedures [] Course & Med Decision Making Course & Med Decision Making Pertinent Labs and Imaging studies reviewed. (See chart for details) []29-year-old female presents to the emergency Department with complaints of rash. She states initially started on her arms associatively spread she has on her back, her chest, her abdomen. These are not itchy on exam, they're red and irritated with some scaly maculopapular. She denies fever, nausea, vomiting, chest pain, shortness of breath. Nothing makes worse or better on exam Rash - maculopapular (non-infectious) - medrol dose rodri, benadryl as needed for itching, triamcinolone cream applied BID. Return to the ER with worsening symptoms, fever, concern for cellulitis Dragcarlos alberto Disclaimer Dragon Disclaimer This electronic medical record was generated, in whole or in part, using a voice recognition dictation system. Departure Departure Impression: Primary Impression: Rash and nonspecific skin eruption Disposition: HOME, SELF-CARE Condition: LEFT WITHOUT BEING SEEN Referrals: NO PCP (PCP) Patient Instructions: Pityriasis Rosea Additional Instructions: Recommend taking prescription as directed Triamcinolone cream to affected area BID Return to the ER for concerns of cellulitis or infection Rash is not contagious - ok to return to work without restriction Scripts Methylprednisolone (MEDROL) 4 Mg Tab.ds.pk 1 PKG PO UD for inflammation, #1 PKG Prov: ANGELINA BENITEZ MD 06/28/19 Triamcinolone Acetonide (TRIAMCINOLONE ACETONIDE 0.025% CREAM) 15 Gm Cream..g. 1 GRAZYNA TP BID, #30 GM Prov: ANGELINA BENITEZ MD 06/28/19 ANGELINA BENITEZ MD Jun 28, 2019 09:16
[2019-06-28] MEDS ORDERED: TRIA15CR2 TP (09:19)
[2019-06-28] MEDS ORDERED: METH4TAB2 PO (09:19)
== END 2019-06-28 09:36 | disposition home or self-care (01) ==
LOC: ER 08:43
DX: R21 Rash and other nonspecific skin eruption (principal); F31.9 Bipolar disorder, unspecified
CPT/HCPCS: 99283

== ENCOUNTER 2020-04-07 18:36 | Emergency (ER) | payer BC ==
[~2020-04-07] VITALS: Ht 160 cm; Wt 61.0 kg
[~2020-04-07 18:36] MED LIST changes: -LAMO200T2 PO; +LAMO200T6 PO; +METH4TAB2 PO; +TRIA15CR2 TP
[2020-04-07] MEDS ORDERED: ACETAMINOPHEN 325 MG TABLET. PO ONE (19:00)
--- NOTE | 2020-04-07 19:22 | PHYS DOC ---
Past Medical History Past Medical History: Anxiety, Bipolar, Depression Additional Past Medical Histor: polycystic ovarian disease, SVT, Herpes Past Surgical History: , Tubal ligation Additional Past Surgical Histo: wisdom tooth extraction Smoking Status: Current Every Day Smoker Alcohol Use: Rarely Drug Use: None General Adult EDM: Chief Complaint: FLU SYMPTOM HPI: HPI: Patient is a 30-year-old female who works at [email or web address]. Patient has a past medical history of bipolar anxiety and depression. Patient presents for the evaluation of fever body aches fatigue sore throat with cough. Patient states onset of symptoms 2 AM this morning. She states her whole entire body aches and she feels very weak. Patient also complains of a cough with very small sputum production. She also states her throat feels scratchy. Patient's heart rate on monitor is 122 and she is currently febrile. Patient denies any chest pain. Review of Systems: Review of Systems: Constitutional: Positive fevers positive chills Eyes: Denies change in visual acuity. [] HENT: Positive sore throat. [] Respiratory: Positive cough or shortness of breath. [] Cardiovascular: Denies chest pain or edema. [] GI: Denies abdominal pain, nausea, vomiting, bloody stools or diarrhea. [] : Denies dysuria. [] Musculoskeletal: Denies back pain or joint pain. [Positive myalgia] Integument: Denies rash. [] Neurologic: Denies headache, focal weakness or sensory changes. [] Endocrine: Denies polyuria or polydipsia. [] Lymphatic: Denies swollen glands. [] Psychiatric: Denies depression or anxiety. [] Heart Score: Risk Factors: Risk Factors: DM, Current or recent (<one month) smoker, HTN, HLP, family histo ry of CAD, obesity. Risk Scores: Score 0 - 3: 2.5% MACE over next 6 weeks - Discharge Home Score 4 - 6: 20.3% MACE over next 6 weeks - Admit for Clinical Observation Score 7 - 10: 72.7% MACE over next 6 weeks - Early Invasive Strategies Current Medications: Current Medications Medications (Trade) Dose Ordered Sig/Nathan Start Time Stop Time Status Last Admin Dose Admin Acetaminophen (Tylenol) 650 mg 1X ONCE 04/07/20 19:00 04/07/20 19:01 DC Allergies: Allergies: Allergies Coded Allergies Type Severity Reaction Last Updated Verified No Known Drug Allergies 08/01/14 No Physical Exam: PE: Constitutional: Well developed, well nourished, no acute distress, ill- appearing. [] HENT: Normocephalic, atraumatic, bilateral external ears normal, oropharynx moist, no oral exudates, nose normal. [] Eyes: , EOMI, conjunctiva normal, no discharge. [] Neck: Normal range of motion, no tenderness, supple, no stridor. [] Cardiovascular: Tachycardia Lungs & Thorax: No respiratory distress Abdomen: , soft, no tenderness, no masses, no pulsatile masses. [] Skin: Warm, dry, no erythema, no rash. [] Back: No tenderness, no CVA tenderness. [] Extremities: No tenderness, no cyanosis, no clubbing, ROM intact, no edema. [] Neurologic: Alert and oriented X 3, normal motor function, normal sensory function, no focal deficits noted. [] Psychologic: Affect normal, judgement normal, mood normal. [] EKG: EKG: [] Radiology/Procedures: Radiology/Procedures: [] Impression: EXAM: CHEST ONE VIEW. HISTORY: Shortness of breath, fever, cough. COMPARISON: None. FINDINGS: A frontal view of the chest is obtained. Multiple leads project over the chest. There are no confluent infiltrates. There is no pneumothorax or pleural effusion. The heart is not enlarged. IMPRESSION: 1. No confluent infiltrates. Electronically signed by: Francisco An MD (04/07/2020 7:42 PM) [facility] Course & Med Decision Making: Course & Med Decision Making Pertinent Labs and Imaging studies reviewed. (See chart for details) [] Patient was evaluated for chief complaint. Work-up consisted of laboratory analysis and radiologic imaging. Results reviewed and discussed with patient. Patient does have a COVID test pending. Patient urine consistent with a urinary tract infection. Treatment included Tylenol 2 L of IV fluids and Rocephin. Patient will be discharged home on Macrobid. Patient will be put on COVID precautions until results return. Suspect etiology is urinary tract infection. Dragon Disclaimer: Dragon Disclaimer: This electronic medical record was generated, in whole or in part, using a voice recognition dictation system. Departure Departure Impression: Primary Impression: UTI (lower urinary tract infection) Additional Impressions: Fever Person under investigation for COVID-19 Disposition: HOME, SELF-CARE Condition: STABLE Referrals: NO PCP (PCP) SUNI SANDOVAL MD Patient Instructions: Fever, Urinary Tract Infection Additional Instructions: You have been tested for or diagnosed with COVID-19. It is an infection caused by a new type of coronavirus. COVID-19 will cause cold-like or mild flu symptoms in most. It can cause more severe symptoms like problems breathing in some. There is no treatment for COVID-19. The body will clear the infection over time. Self-care will help to ease discomfort. Steps to Take: Self-Care Rest as needed. Healthy habits may help you feel better. Steps include: Choose healthy foods including fruits and vegetables. Drink water throughout the day. Get plenty of sleep each night. If you smoke, try to quit. It may ease breathing. Avoid alcohol. Keep Others Healthy The virus can spread to others. Droplets are released every time you sneeze or cough. The droplets can get into the mouth, nose, or eyes of people near you and lead to infection. To lower the chances of spreading COVID-19 to others: Stay at home until your doctor has said it is safe to leave. If you tested positive this will mean staying isolated until both of the following are true: At least 7 days have passed since the start of illness. You are free of fever for at least 72 hours without the use of medicine. During this time: - Avoid public areas, events, or transportation. Do not return to work or school until your doctor has said it is safe to do so. - Call ahead if you need to go to a medical center. Let them know you may have COVID-19. It will help them guide you where to go. They may also ask you to wear a facemask when you come to the office. - If you call for emergency medical services, let them know you may have COVID- 19. While at home: - Try to avoid close contact with others. Stay about 6 feet away. - If possible, spend most of your time in a separate room from others. - Use a face mask if you will be in close contact with others such as sharing a room or vehicle. - Have someone wipe down common surfaces in the home. Use household account group supervisor every day on areas like doorknobs, counters, or sinks. - Cough or sneeze into a tissue. Throw the tissue away right after use. If a tissue is not available, cough or sneeze into your elbow. - Wash your hands often. Wash them after sneezing or coughing. Use soap and water and wash for at least 20 seconds. Alcohol based hand pillow cleaner can be used if soap and water is not available. - Do not prepare food for others. Avoid sharing personal items like forks, spoons, or toothbrushes. - Avoid close contact with pets while you are sick. There is no evidence of the virus passing to pets. This is a safety step until more is known about this virus. Isolation can be frustrating. Social interaction can help. Keep in touch with friends and family through phone and tech options. You can still interact with others in your home, just keep a safe distance of about 6 feet. Follow-up: Your doctors office will check in with you to see if there are any changes in your health. You may be asked to keep track of symptoms to share with them. They will also le t you know when you are clear to be in public again. Problems to Look Out For: Contact your doctor if your recovery is not going as you expect. Get emergency care if you have problems such as: - Trouble breathing - Nonstop chest pain or pressure - Changes in awareness, confusion, or problems waking - Lips or face have bluish color - Worsening of symptoms If you think you have an emergency, call for emergency medical services right away. As taken from [email or web address] Script[facility] Nitrofurantoin Monohyd/M-Cryst (MACROBID 100 MG CAPSULE) 100 Mg Capsule 1 CAP PO BID for 10 Days, #20 CAP 0 Refills Prov: ANDERS KHAN I DO 04/07/20 Justicifation of Admission Dx: Justifications for Admission: Justification of Admission Dx: N/A ANDERS KHAN I DO Apr 07, 2020 19:22
[2020-04-07] MEDS ORDERED: IV NORMAL SALINE 1000ML BAG 1,000 ML IV ONE ×2 (19:45→21:30)
--- NOTE | 2020-04-07 19:45 | RAD ---
EXAM: CHEST ONE VIEW. HISTORY: Shortness of breath, fever, cough. COMPARISON: None. FINDINGS: A frontal view of the chest is obtained. Multiple leads project over the chest. There are no confluent infiltrates. There is no pneumothorax or pleural effusion. The heart is not enlarged. IMPRESSION: 1. No confluent infiltrates. Electronically signed by: Francisco An MD (04/07/2020 7:42 PM) [facility]
[2020-04-07 19:58] LABS: INFLUENZA A PATIENT NEGATIVE (NEGATIVE); INFLUENZA B PATIENT NEGATIVE (NEGATIVE)
[2020-04-07 21:34] LABS: BASO % 0 % (0-3); EOS # 0.1 x10^3/uL (0.0-0.7); EOS % 0 % (0-3); HEMATOCRIT 40.6 % (36.0-47.0); HEMOGLOBIN 14.3 g/dL (12.0-15.5); LYMPH # 2.4 x10^3/uL (1.0-4.8); LYMPH % 18 % (24-48); MEAN CORPUSCULAR HEMOGLOBIN 32 pg (25-35); MEAN CORPUSCULAR HGB CONC 35 g/dL (31-37); MEAN CORPUSCULAR VOLUME 90 fL (79-100); MONO # 1.1 x10^3/uL (0.0-1.1); MONO % 8 % (0-9); NEUT # 9.8 x10^3/uL (1.8-7.7); NEUT % 73 % (31-73); PLATELET COUNT 239 x10^3/uL (140-400); RED BLOOD COUNT 4.52 x10^6/uL (3.50-5.40); WHITE BLOOD COUNT 13.3 x10^3/uL (4.0-11.0)
[2020-04-07 21:35] LABS: BILIRUBIN,URINE NEGATIVE (NEG); CLARITY,URINE CLEAR; COLOR,URINE YELLOW; NITRITE,URINE POSITIVE (NEG); PROTEIN,URINE 30 mg/dL (NEG-TRACE)
[2020-04-07 21:41] LABS: CALCIUM 8.5 mg/dL (8.5-10.1); CREATININE 0.9 mg/dL (0.6-1.0); GFR 72.6; POTASSIUM 3.6 mmol/L (3.5-5.1)
[2020-04-07 21:43] LABS: BACTERIA,URINE MANY /HPF (0-FEW); SQUAMOUS EPITHELIAL CELL,UR MOD /LPF; WBC,URINE 20-40 /HPF (0-4)
[2020-04-07 21:47] LABS: ALBUMIN 3.8 g/dL (3.4-5.0); ALBUMIN/GLOBULIN RATIO 0.9 (1.0-1.7); TOTAL BILIRUBIN 0.5 mg/dL (0.2-1.0); TOTAL PROTEIN 7.9 g/dL (6.4-8.2)
[2020-04-07] MEDS ORDERED: cefTRIAXone IV Push 1 GM VIAL. IVP ONE (22:00)
[2020-04-07] MEDS ORDERED: NITR100C62 PO (22:15)
[2020-04-07 22:30] VITALS: BP 106/58
== END 2020-04-07 22:35 | disposition home or self-care (01) ==
LOC: ER 18:36
DX: N39.0 Urinary tract infection, site not specified (principal); Z20.828 Contact with and (suspected) exposure to other viral communicable diseases; R50.9 Fever, unspecified; R05 Cough; J02.9 Acute pharyngitis, unspecified; R53.83 Other fatigue; F41.9 Anxiety disorder, unspecified; F32.9 Major depressive disorder, single episode, unspecified; F17.200 Nicotine dependence, unspecified, uncomplicated; Z98.890 Other specified postprocedural states; Z98.51 Tubal ligation status; Z79.899 Other long term (current) drug therapy
CPT/HCPCS: 36415; 71045; 80053; 81001; 85025; 87086; 87804; 96374; 99285; J0696; J7030; U0003

== ENCOUNTER → 2020-04-24 | Outpatient (CLI) | payer BC ==
[2020-04-07 22:30] VITALS: BP 106/58
[~2020-04-24] MED LIST changes: +NITR100C62 PO
== END | disposition home or self-care (01) ==
LOC: LAB 12:05
PROVIDERS: ATTEND Obstetrics & Gynecology
DX: Z01.411 Encounter for gynecological examination (general) (routine) with abnormal findings (principal); N90.7 Vulvar cyst
CPT/HCPCS: 36415; 86592; 86703

== ENCOUNTER 2020-12-03 10:23 | Emergency (ER) | payer BC ==
[~2020-12-03] VITALS: Ht 160 cm; Wt 63.6 kg
[~2020-12-03 10:23] MED LIST changes: -BUPR200T PO; +BUPR200T3 PO
--- NOTE | 2020-12-03 10:47 | ED.ADGEN ---
Past Medical History Past Medical History: Anxiety, Bipolar, Depression Additional Past Medical Histor: polycystic ovarian disease, SVT, Herpes Past Surgical History: , Tubal ligation Additional Past Surgical Histo: wisdom tooth extraction Smoking Status: Current Every Day Smoker Additional Information: 1 ppd Alcohol Use: Sober Additional Information: sober since February 2020 Drug Use: None General Adult EDM: Chief Complaint: CHEST PAIN HPI: HPI: Patient is a 30 year old female who arrives ambulatory to the emergency department complaining of chest pain. Patient describes chest pain of her upper chest wall and the left which began yesterday. Patient reports she went home from work and went to sleep hoping she could alleviate it that way. Patient states when she woke this morning it returned. Patient reports she has a history of anxiety and wonders if this may be related to an anxiety attack. Patient states she has been very stressed lately with the facets of her work. She does report to having coronavirus late last year and has not been sick otherwise. Patient does report some shortness of air when this occurs however she is not had any productive cough or fever. She further denies any history of coronary artery disease. She is awake, alert and nontoxic-appearing. Review of Systems: Review of Systems: Constitutional: Denies fever or chills. [] Eyes: Denies change in visual acuity. [] HENT: Denies nasal congestion or sore throat. [] Respiratory: Reports shortness of breath. Denies cough. [] Cardiovascular: Reports chest pain. Denies edema. [] GI: Denies abdominal pain, nausea, vomiting, bloody stools or diarrhea. [] : Denies dysuria. [] Musculoskeletal: Denies back pain or joint pain. [] Integument: Denies rash. [] Neurologic: Denies headache, focal weakness or sensory changes. [] Endocrine: Denies polyuria or polydipsia. [] Lymphatic: Denies swollen glands. [] Psychiatric: Reports to anxiety. Denies depression. [] Allergies: Allergies: Allergies Coded Allergies Type Severity Reaction Last Updated Verified No Known Drug Allergies 12/03/20 No Physical Exam: PE: Constitutional: Well developed, well nourished, no acute distress, non-toxic appearance. [] HENT: Normocephalic, atraumatic, bilateral external ears normal, oropharynx moist, no oral exudates, nose normal. [] Eyes: PERRLA, EOMI, conjunctiva normal, no discharge. [] Neck: Normal range of motion, no tenderness, supple, no stridor. [] Cardiovascular:Heart rate regular rhythm, no murmur [] Lungs & Thorax: Bilateral breath sounds clear to auscultation [] Abdomen: Bowel sounds normal, soft, no tenderness, no masses, no pulsatile masses. [] Skin: Warm, dry, no erythema, no rash. [] Back: No tenderness, no CVA tenderness. [] Extremities: No tenderness, no cyanosis, no clubbing, ROM intact, no edema. [] Neurologic: Alert and oriented X 3, normal motor function, normal sensory function, no focal deficits noted. [] Psychologic: Affect normal, judgement normal, mood normal. [] Current Patient Data: Labs: Laboratory Tests Test 12/03/20 10:50 Troponin I Quantitative < 0.017 ng/mL (0.000-0.055) Vital Signs: Vital Signs Date Time Temp Pulse Resp B/P (MAP) Pulse Ox O2 Delivery O2 Flow Rate FiO2 12/03/20 10:31 98.2 104 20 104/70 (81) 100 Room Air 98.2 EKG: EKG: [] Patient had an EKG obtained at 10:35 AM which revealed a normal sinus rhythm with a ventricular rate of 90 bpm. There is an incomplete right bundle branch block without any acute ST/T wave changes otherwise to denote ischemia. Heart Score: HEART Score for Chest Pain: HEART Score for Chest Pain Response (Comments) Value History Slighlty/Non-Suspicious 0 ECG Normal 0 Age < 45 0 Risk Factors 1 or 2 Risk Factors 1 Troponin < Normal Limit 0 Total 1 Risk Factors: Risk Factors: DM, Current or recent (<one month) smoker, HTN, HLP, family history of CAD, obesity. Risk Scores: Score 0 - 3: 2.5% MACE over next 6 weeks - Discharge Home Score 4 - 6: 20.3% MACE over next 6 weeks - Admit for Clinical Observation Score 7 - 10: 72.7% MACE over next 6 weeks - Early Invasive Strategies Radiology/Procedures: Radiology/Procedures: [] Impression: [facility] [address] [place] [address] IMAGING REPORT Signed PATIENT: MAXIMO ZAZUETA ACCOUNT: [id number] : 1990 LOCATION: ER AGE: 30 SEX: F EXAM STATUS: REG ER ORD. PHYSICIAN: BERNABE ATWOOD DO REASON: Chest pain PROCEDURE: CHEST AP ONLY XR CHEST 1V History: Reason: Chest pain / Spl. Instructions: / History: Comparison: April 07, 2020 Findings: No consolidation or pleural effusion. Normal heart size. No pneumothorax. Impression: 1. No acute cardiopulmonary process. Electronically signed by: Humera Vela DO (12/03/2020 11:14 AM) [id number] DICTATED and SIGNED BY: HUMERA VELA DO DATE: 12/03/20 [id number] Course & Med Decision Making: Course & Med Decision Making Pertinent Labs and Imaging studies reviewed. (See chart for details) [] Dragon Disclaimer: Dragon Disclaimer: This electronic medical record was generated, in whole or in part, using a voice recognition dictation system. Departure Departure Impression: Primary Impression: Atypical chest pain Additional Impression: Anxiety about health Disposition: 01 DC HOME SELF CARE/HOMELESS Condition: GOOD Referrals: NO PCP (PCP) Patient Instructions: Anxiety and Panic Attacks, Chest Pain (Nonspecific) Problem Qualifiers BERNABE ATWOOD DO Dec 03, 2020 10:47
--- NOTE | 2020-12-03 11:16 | RAD ---
XR CHEST 1V History: Reason: Chest pain / Spl. Instructions: / History: Comparison: April 07, 2020 Findings: No consolidation or pleural effusion. Normal heart size. No pneumothorax. Impression: 1. No acute cardiopulmonary process. Electronically signed by: Festus Dhaliwal DO (12/03/2020 11:14 AM) [id number]
--- NOTE | 2020-12-03 11:20 | EKG ---
[facility] [address] [place] [address] Test Date: 2020-12-03 Test Time: 10:35:25 Pat Name: MAXIMO ZAZUETA Department: Room: Gender: F Share[employer] Manager: : 1990 Requested By: BERNABE ATWOOD Order Number: [id number] Reading MD: Measurements Intervals [place] Rate: 98 P: 59 SD: 142 QRS: 60 QRSD: 82 T: 51 QT: 332 QTc: 426 Interpretive Statements SINUS RHYTHM INCOMPLETE RIGHT BUNDLE BRANCH BLOCK NO SPECIFIC ECG ABNORMALITIES RI6.01 No previous ECG available for comparison
[2020-12-03 11:29] VITALS: BP 95/61
== END 2020-12-03 12:09 | disposition home or self-care (01) ==
LOC: ER 10:23
DX: R07.89 Other chest pain (principal); F41.9 Anxiety disorder, unspecified; F31.9 Bipolar disorder, unspecified; F17.200 Nicotine dependence, unspecified, uncomplicated
CPT/HCPCS: 36415; 71045; 84484; 93005; 99285-25

== ENCOUNTER 2021-07-28 19:36 | Emergency (ER) | payer BC ==
[~2021-07-28] VITALS: Ht 160 cm; Wt 75.0 kg
[~2021-07-28 19:36] MED LIST changes: -DOXY100C2 PO; +DOXY100C3 PO
[2021-07-28] MEDS ORDERED: ALPRAZolam 0.5 MG TABLET PO ONE (20:15)
--- NOTE | 2021-07-28 20:19 | PHYS DOC ---
Past Medical History Past Medical History: Anxiety, Bipolar, Depression Additional Past Medical Histor: polycystic ovarian disease, SVT, Herpes Past Surgical History: , Tubal ligation Additional Past Surgical Histo: wisdom tooth extraction Smoking Status: Current Every Day Smoker Alcohol Use: Sober Drug Use: None General Adult EDM: Chief Complaint: CHEST PAIN HPI: HPI: 31 yo PMH bipolar disorder, SVT, tobacco use, and anxiety, presents to the ED from work with complaints of bilateral upper chest tightness stating " I think it is all stress related." Reports she was recently crying and is having increased stress at work with her colleagues. States she works night shifts and does not have time to exercise or even clean her house. She is missing her kids who the father is watching while she works nights. States" I think I am just overwhelmed, and father recently went to a detention." Reports compliance with Abilify and sees her therapist twice a month. Reports feeling exhausted with decreased sleep. Had Covid at the end of 2019 and has received her Covid vaccine. Has history of tubal ligation. Grandfather with history of CAD. Denies any cocaine, IV drug use, alcohol use or substance dependence. States "I think my heart rate is fast." No personal or family history of AAA, AAD, CTD (eh[place] or marfans), cardiac arrhythmias (need for AICD), sudden or unexplainable (under 50 years of age or with exertion), or clotting disorders. Later in ED reports to RN that she does have some burning with [place]. Denies any hematuria, flank pain, nausea or vomiting or flulike symptoms. Review of Systems: Review of Systems: Constitutional: Denies fever or chills. [] Eyes: Denies change in visual acuity. [] HENT: Denies nasal congestion or sore throat. [] Respiratory: Denies cough or shortness of breath or hemoptysis Cardiovascular: Denies syncope or edema. [] GI: Denies abdominal pain, nausea, vomiting, bloody stools or diarrhea. [] : Denies hematuria or vaginal bleeding Musculoskeletal: Denies back pain or joint pain. [] Integument: Denies rash or diaphoresis Neurologic: Denies headache, focal weakness or sensory changes. [] Endocrine: Denies polyuria or polydipsia. [] Lymphatic: Denies swollen glands. [] Psychiatric: Denies hallucinations or homicidal ideations Heart Score: C/O Chest Pain: Yes HEART Score for Chest Pain: HEART Score for Chest Pain Response (Comments) Value History Slighlty/Non-Suspicious 0 ECG Normal 0 Age < 45 0 Risk Factors 1 or 2 Risk Factors 1 Troponin < Normal Limit 0 Total 1 Risk Factors: Risk Factors: DM, Current or recent (<one month) smoker, HTN, HLP, family history of CAD, obesity. Risk Scores: Score 0 - 3: 2.5% MACE over next 6 weeks - Discharge Home Score 4 - 6: 20.3% MACE over next 6 weeks - Admit for Clinical Observation Score 7 - 10: 72.7% MACE over next 6 weeks - Early Invasive Strategies Allergies: Allergies: Allergies Coded Allergies Type Severity Reaction Last Updated Verified No Known Drug Allergies 12/03/20 No Physical Exam: PE: Constitutional: Well developed, well nourished, no acute distress, non-toxic appearance, nasal voice, HENT: Normocephalic, atraumatic, Eyes: EOMI, conjunctiva normal, no discharge. Neck: Normal range of motion, supple, Cardiovascular: S1/2 present, tachycardic Lungs & Thorax: Speaking in full sentences, bilateral equal chest rise, no tachypnea or increased work of breathing Abdomen: soft, no tenderness, Skin: Warm, dry, Extremities: No tenderness, no cyanosis, no lower extremity edema Neurologic: Alert and oriented X 3, normal motor function, normal sensory function, no focal deficits noted. [] Psychologic: Flat depressed affect, calm mood, appears to have been recently crying EKG: EKG: Sinus tachycardia 103 bpm, no axis deviation, normal intervals, no T wave inversions, no ST elevations or ST depressions Radiology/Procedures: Radiology/Procedures: IMAGING REPORT Signed PATIENT: MAXIMO ZAZUETA ACCOUNT: [id number] : 1990 LOCATION: ER AGE: 31 SEX: F EXAM STATUS: PRE ER ORD. PHYSICIAN: DEEP UP DO REASON: cp, PREG TEST WAIT PROCEDURE: PORTABLE CHEST 1V AP chest x-ray HISTORY: Chest pain. FINDINGS: Linear and obscures a portion of the midline lower chest. Heart size normal. Mediastinal silhouette is normal. No pneumothorax, pulmonary opacities or pleural effusions. Bones are unremarkable. IMPRESSION: No acute process. Electronically signed by: Eryn Ernst MD (07/28/2021 8:50 PM) [facility] DICTATED and SIGNED BY: ERYN ERNST MD DATE: 07/28/[id number] 0 Course & Med Decision Making: Course & Med Decision Making Pertinent Labs and Imaging studies reviewed. (See chart for details) Concern for anxiety and stress at work in the setting of urinary tract infection, Adderall use (admits she takes this as a nonprescribed medication), and atypical chest tightness. Patient is low risk for Mace, 2 troponins negative and D-dimer within normal limits. Will prescribe antibiotics. On reevaluation patient is resting comfortably and her heart rate is 100 bpm. Patient has no active complaints and states her chest tightness has resolved. Patient is requesting a work note. Will discharge home with strict ED return precautions were given for chest pressure, neurologic deficits, increased work of breathing or syncope. Encouraged urgent outpatient follow-up with PMD and psychiatry regarding management of her bipolar depression. Life-threatening processes were considered but are low suspicion at this time, given history, physical exam and ED workup. Pt was educated on all prescription medications and adverse effects. All patient's questions were answered and pt was stable at time of discharge. Life/limb-threatening differential includes but is not limited to, acute myocardial infarction, aortic dissection, congestive heart failure, esophageal injury including rupture, surgical abdomen, arrhythmia, cardiomyopathy, myocarditis, pericarditis, peptic ulcer disease, pneumomediastinum, pneumonia, pneumothorax, pulmonary embolus, unstable angina, rib fracture, contusion, pericardial tamponade or effusion, traumatic injury including mediastinal hemorrhage or hematoma, or pulmonary contusion. I have spoken with the patient and/or caregivers. I explained the patient's condition, diagnoses and treatment plan based on the information available to me at this time. I have answered the patient and/or caregiver's questions and addressed any concerns. The patient and/or caregivers have a good understanding of patient's diagnosis, condition and treatment plan as can be expected at this point. Vital signs have been stable. Patient's condition is stable and appropriate for discharge from the emergency department. Patient will pursue further outpatient evaluation with primary care physician or other designated or consulting physician as outlined in the discharge instructions. The patient and/or caregivers are agreeable to this plan of care and follow-up instructions have been explained in detail. The patient and/or caregivers have received these instructions in written form and have expressed an understanding of the discharge instructions. The patient and/or caregivers are aware that any significant change of condition or worsening of symptoms lynnette uld prompt immediate return to this or the closest emergency department or [facility] Disclaimer: Tong Disclaimer: This electronic medical record was generated, in whole or in part, using a voice recognition dictation system. Departure Departure Impression: Primary Impression: UTI (lower urinary tract infection) Additional Impressions: Drug use Stress and adjustment reaction Chest pain Disposition: HOME / SELF CARE / HOMELESS Condition: STABLE Referrals: NO PCP (PCP) Follow-up with your primary care physician in 24 to 48 hours OR FOLLOW UP WITH FAMILY MEDICINE: [address] [facility] [place] [address] Patient Instructions: Chest Pain (Nonspecific), Stress Management, Urinary Tract Infection Additional Instructions: FOLLOW UP WITH PSYCHIATRY: FOR DEFINITIVE MANAGEMENT of bipolar depression Dr. Daniel Sagastume Psychiatry Specialist [address], [place] [address] EMERGENCY DEPARTMENT GENERAL DISCHARGE INSTRUCTIONS Thank you for coming to [facility] Emergency Department (ED) today and trusting us with you care. We trust that you had a positive experience in our Emergency Department. If you wish to speak to the department management, you may call the Director at [phone]. YOUR FOLLOW UP INSTRUCTIONS ARE FOLLOWS: 1. Do you have a private Doctor? If you do not have a private doctor, please ask for a resource list of physicians or clinics that may be able to assist you with follow up care. 2. The Emergency Physicain has interpreted your x-rays. The X-Ray specialist will also review them. If there is a change in the findings, you will be notified in 48 hours when at all possible. 3. A lab test or culture has been done, your results will be reviewed and you will be notified if you need a change in treatment. ADDITIONAL INSTRUCTIONS AND INFORMATION: 1. Your care today has been supervised by a physician who is specially trained in emergency care. Many problems require more than one evaluation for a complete diagnosis and treatment. We recommend that you schedule your follow up appointment as recommended to ensure complete treatment of you illness or injury. If you are unable to obtain follow up care and continue to have a problem, or if your condition worsens, we recommend that you return to the ED. 2. We are not able to safely determine your condition over the phone nor are we able to give sound medical advice over the phone. For these safety reasons, if you call for medical advice we will ask you to come to the ED for further evaluation. 3. If you have any questions regarding these discharge instructions please call the ED at [phone]. SAFETY INFORMATION: In the interest of safety, wellness, and injury prevention; we encourage you to wear your sealbelt, if you smoke; quite smoking, and we encourage family to use a protective helmet for bicycling and other sporting events that present an increased risk for head injury. IF YOUR SYMPTOMS WORSEN OR NEW SYMPTOMS DEVELOP, OR YOU HAVE CONCERNS ABOUT YOUR CONDITION; OR IF YOUR CONDITION WORSENS WHILE YOU ARE WAITING FOR YOUR FOLLOW UP APPOINTMENT; EITHER CONTACT YOUR PRIMARY CARE DOCTOR, THE PHYSICIAN WHOSE NAME AND NUMBER YOU WERE GIVEN, OR RETURN TO THE ED IMMEDIATELY. Scripts Nitrofurantoin Monohyd/M-Cryst (MACROBID 100 MG CAPSULE) 100 Mg Capsule 1 CAP PO BID for 7 Days, #14 CAP 0 Refills Prov: DEEP UP DO 07/29/21 DEEP UP DO Jul 28, 2021 20:18
[2021-07-28 20:26] LABS: BASO # 0.1 x10^3/uL (0.0-0.2); BASO % 1 % (0-3); EOS # 0.2 x10^3/uL (0.0-0.7); EOS % 2 % (0-3); HEMATOCRIT 37.4 % (36.0-47.0); HEMOGLOBIN 12.5 g/dL (12.0-15.5); LYMPH # 3.7 x10^3/uL (1.0-4.8); LYMPH % 26 % (24-48); MEAN CORPUSCULAR HEMOGLOBIN 30 pg (25-35); MEAN CORPUSCULAR HGB CONC 33 g/dL (31-37); MEAN CORPUSCULAR VOLUME 91 fL (79-100); MONO # 0.7 x10^3/uL (0.0-1.1); MONO % 5 % (0-9); NEUT # 9.6 x10^3/uL (1.8-7.7); NEUT % 67 % (31-73); PLATELET COUNT 284 x10^3/uL (140-400); RED BLOOD COUNT 4.14 x10^6/uL (3.50-5.40); RED CELL DISTRIBUTION WIDTH 13.3 % (11.5-14.5); WHITE BLOOD COUNT 14.3 x10^3/uL (4.0-11.0)
[2021-07-28 20:33] LABS: PREG TEST PT QUAL NEGATIVE (NEG)
[2021-07-28 20:35] LABS: CALCIUM 8.3 mg/dL (8.5-10.1); CREATININE 0.8 mg/dL (0.6-1.0); GFR 82.6; POTASSIUM 3.9 mmol/L (3.5-5.1)
[2021-07-28 20:40] LABS: ALBUMIN 3.3 g/dL (3.4-5.0); ALBUMIN/GLOBULIN RATIO 0.9 (1.0-1.7); MAGNESIUM 2.1 mg/dL (1.8-2.4); TOTAL BILIRUBIN 0.2 mg/dL (0.2-1.0); TOTAL PROTEIN 6.9 g/dL (6.4-8.2)
--- NOTE | 2021-07-28 20:53 | RAD ---
AP chest x-ray HISTORY: Chest pain. FINDINGS: Linear and obscures a portion of the midline lower chest. Heart size normal. Mediastinal si lhouette is normal. No pneumothorax, pulmonary opacities or pleural effusions. Bones are unremarkable . IMPRESSION: No acute process. Electronically signed by: Waldemar Ernst MD (07/28/2021 8:50 PM) [facility]
[2021-07-28 22:57] LABS: BILIRUBIN,URINE NEGATIVE (NEG); CLARITY,URINE CLEAR; COLOR,URINE YELLOW; NITRITE,URINE POSITIVE (NEG); PROTEIN,URINE NEGATIVE (NEG-TRACE); UROBILINOGEN,URINE 0.2 mg/dL (0.2 mg/dL)
[2021-07-28] MEDS ORDERED: HALOPERIDOL LACTATE 5 MG/ML VIAL. IVP ONE (23:00)
[2021-07-28 23:03] LABS: BARBITURATES NEG (NEG); BENZODIAZEPINES NEG (NEG); CANNABINOIDS NEG (NEG); COCAINE NEG (NEG); METHADONE NEG (NEG); OPIATES NEG (NEG); PHENCYCLIDINE NEG (NEG)
[2021-07-28 23:06] LABS: AMORPHOUS SEDIMENT,UR PRESENT /HPF; BACTERIA,URINE MANY /HPF (0-FEW); RBC,URINE 0 /HPF (0-2)
[2021-07-28 23:07] LABS: AMPHETAMINE/METHAMPHETAMINE POS (NEG)
[2021-07-28 23:47] VITALS: BP 115/72
[2021-07-29] MEDS ORDERED: NITR100C62 PO (00:18)
== END 2021-07-29 00:32 | disposition home or self-care (01) ==
LOC: ER 19:36
DX: N39.0 Urinary tract infection, site not specified (principal); F43.9 Reaction to severe stress, unspecified; R07.89 Other chest pain; F43.20 Adjustment disorder, unspecified; F19.90 Other psychoactive substance use, unspecified, uncomplicated; F31.9 Bipolar disorder, unspecified; Z72.0 Tobacco use; Z98.51 Tubal ligation status
CPT/HCPCS: 36415; 71045; 80053; 80307; 81001; 83690; 83735; 83880; 84484; 84703; 85025; 85379; 87077; 87086; 87186; 93005; 99285-25